=== PATIENT | male | born 1970 | race Caucasian/White ===

== ENCOUNTER → 2022-11-17 09:30 | Outpatient (BNVA) | payer OTHER, SELFPAY | PROVIDERS: PCP Physician Assistant; Visit Provider Nurse Practitioner Family | DX: M47.816 Spondylosis without myelopathy or radiculopathy, lumbar region (principal); M51.36 Other intervertebral disc degeneration, lumbar region; M53.3 Sacrococcygeal disorders, not elsewhere classified; Z98.1 Arthrodesis status | CPT/HCPCS: 99202 ==